=== PATIENT | female | born 1950 | race Caucasian/White ===

== ENCOUNTER → 2020-12-27 | Outpatient (CLI) | payer MEDICARE ==
[~2020-12-27] MED LIST: ACTEMRA400 MG/20; ASPIRIN325 PO; ATORVASTATIN CA40 MG PO; CALCIUM 500 +1 EAC5 PO; FLEXERIL; FOLBIC RF TABL1 EACH PO; HUMIRA40 MG/0.8 IM; HYDROXYCHLOROQ200 M1 PO; LOPRESSOR50 PO; PERCOCET PO; SULFAZINE500 MG PO; XARELTO10 MG PO
== END ==
LOC: M.PC 09:10
PROVIDERS: ATTEND Physical Medicine & Rehabilitation
DX: M47.816 Spondylosis without myelopathy or radiculopathy, lumbar region (principal); M51.36 Other intervertebral disc degeneration, lumbar region; M79.18 Myalgia, other site; M06.9 Rheumatoid arthritis, unspecified; I10 Essential (primary) hypertension; Z72.89 Other problems related to lifestyle

== ENCOUNTER → 2021-01-03 | Outpatient (CLI) | payer MEDICARE | LOC: M.CT 10:51 | PROVIDERS: ATTEND Physical Medicine & Rehabilitation | DX: M51.26 Other intervertebral disc displacement, lumbar region (principal); M47.816 Spondylosis without myelopathy or radiculopathy, lumbar region ==

== ENCOUNTER → 2021-02-21 | Outpatient (CLI) | payer MEDICARE | LOC: M.RAD 10:27 | PROVIDERS: ATTEND Registered Nurse Diabetes Educator | DX: R09.89 Other specified symptoms and signs involving the circulatory and respiratory systems (principal); I70.0 Atherosclerosis of aorta; Z90.49 Acquired absence of other specified parts of digestive tract ==

== ENCOUNTER 2021-03-10 13:40 | Emergency (ER) | payer MEDICARE ==
[~2021-03-10] VITALS: Ht 162.6 cm; Wt 90.7 kg
[2021-03-10] MEDS ORDERED: MUPIROCIN22 GM TOP (18:42)
[2021-03-10] MEDS ORDERED: CEPHALEXIN500 MG PO (18:42)
[2021-03-10 19:12] VITALS: BP 111/68
== END 2021-03-10 19:12 | disposition home or self-care (01) ==
LOC: M.ERS 13:40
DX: L03.116 Cellulitis of left lower limb (principal); M19.90 Unspecified osteoarthritis, unspecified site; I10 Essential (primary) hypertension; M06.9 Rheumatoid arthritis, unspecified; Z96.641 Presence of right artificial hip joint; Z96.652 Presence of left artificial knee joint; Z90.49 Acquired absence of other specified parts of digestive tract; Z79.899 Other long term (current) drug therapy; Z79.82 Long term (current) use of aspirin